=== PATIENT | female | born 1980 | race Caucasian/White ===

== ENCOUNTER 2020-05-25 21:47 | Emergency (ER) | payer SELFPAY ==
[~2020-05-25] VITALS: Ht 170.2 cm; Wt 81.6 kg
[2020-05-25 21:49] VITALS: Ht 170.2 cm; Wt 81.6 kg
[2020-05-26 09:06] VITALS: BP 139/78
== END 2020-05-26 09:06 | disposition home or self-care (01) ==
LOC: ED 21:47
PROVIDERS: Emergency Medicine
DX: F10.129 Alcohol abuse with intoxication, unspecified (principal); F31.9 Bipolar disorder, unspecified
CPT/HCPCS: J1200; J1630

== ENCOUNTER 2020-05-26 19:46 | Emergency (ER) | payer OTHER, MEDICAID ==
[~2020-05-26] VITALS: Ht 170.2 cm; Wt 113.4 kg
[2020-05-26 19:54] VITALS: Ht 170.2 cm; Wt 113.4 kg
[2020-05-27 11:36] LABS: BASOPHIL % 0.6 % (0-2); PLATELET COUNT 247 x10^3mcL (130-400); RED CELL DISTRIBUTION WIDTH 14.7 % (11.5-14.5)
[2020-05-27 11:39] LABS: CALCIUM 8.7 mg/dL (8.5-10.1); CARBON DIOXIDE 30.4 mmol/L (21-32); CHLORIDE SERUM 104 mmol/L (98-107); CREATININE SERUM 0.7 mg/dL (0.6-1.0); GFR1 > 60 mL/min; GLUCOSE SERUM 132 mg/dL (74-106); POTASSIUM SERUM 3.7 mmol/L (3.5-5.1); SODIUM SERUM 139 mmol/L (136-145)
[2020-05-27 11:44] LABS: ALKALINE PHOSPHATASE 68 U/L (46-116); ALT/SGPT 25 U/L (14-59); AST/SGOT 24 U/L (15-37); BILIRUBIN TOTAL 0.22 mg/dL (0.20-1.00); TOTAL PROTEIN, SERUM 6.4 g/dL (6.4-8.2)
[2020-05-27 11:46] LABS: ALBUMIN 2.9 g/dL (3.4-5.0)
[2020-05-27 11:50] LABS: UA SPECIFIC GRAVITY 1.015 (1.005-1.035); microscopic required? YES; urine erythrocyte NEGATIVE (NEGATIVE)
[2020-05-27 12:08] LABS: AMPHETAMINE QUAL UR NONE DETECTED (See below)
[2020-05-27 19:17] VITALS: BP 124/85
== END 2020-05-27 19:17 | disposition short-term general hospital (02) ==
LOC: ED 19:46
PROVIDERS: Emergency Medicine
DX: R60.0 Localized edema (principal); Z88.6 Allergy status to analgesic agent
CPT/HCPCS: 99406; J1630; Q0092; U0003-CS